=== PATIENT | female | born 1985 | race Caucasian/White ===

== ENCOUNTER 2020-10-07 20:56 | Emergency (ER) | payer OTHER, SELFPAY ==
[2020-10-07 20:57] VITALS: BP 179/89; PULSE 124; RESP 16; TEMP 36.2; O2SAT 100
--- NOTE | 2020-10-07 21:26 | ED.LOWEXIN ---
HPI - Extremity Injury (Lower) General Chief Complaint: Back Pain/Injury Stated Complaint: back pain Time Seen by Provider: 10/07/20 21:05 History of Present Illness HPI Narrative: 35 yo female w/ h/o factor V leiden mutation presents to the ED for back and leg pain. She had pain in the right lower back fr the past couple of weeks. She was seen at urgent care and started on flexeril. She has spent most of the time since then immobile. The pain on the right side subsided, but she developed pain on the left side radiating into the leg. She also has intermittent leg numbness and feels like it is swollen. She has had previous DVTs, so she was concerned. She is on xeralto and has not missed any doses. Related Data Allergies Allergy/AdvReac Type Severity Reaction Status Date / Time No Known Allergies Allergy Verified 03/26/13 15:31 Review of Systems Review of Systems: All systems reviewed & are unremarkable except as noted in HPI and below Constitutional: Constitutional: Denies fever(s) Cardiovascular: Cardiovascular: Denies chest pain Respiratory: Respiratory: Denies dyspnea Gastrointestinal: Gastrointestinal: Denies nausea Musculoskeletal: Musculoskeletal: Reports back pain Neurologic: Denies dizziness, Reports numbness and Denies weakness PMFSH Past Medical History Medical History Anxiety Bleeding diathesis Current use of skilled nursing anticoagulation Factor 5 Leiden mutation, heterozygous History of blood clots Surgical History Surgical History H/O angioplasty Family History Family History Grandparent Family history of malignant neoplasm of ovary, Onset Age: 65 Social History Social History Smoking status: Former smoker Smoking end date: 11/05/18 Alcohol intake: current Exam Const: General: healthy appearing, no acute distress and alert Orientation/consciousness: patient oriented x3 HENMT: Head: normal to inspection Neck: Neck: normal visual inspection Resp: Effort & Inspection: normal respiratory effort Auscultation: clear to auscultation bilaterally, no rales, no rhonchi and no wheezes Cardio: Jugular venous distension: no JVD Rate: regular rate Rhythm: regular rhythm Heart sounds: no murmurs GI: Inspection: non-distended GI Palp: Yes Soft to palpation and No Tenderness to palpation present (GI) Skin: General skin exam: normal color Neuro: General: patient oriented x3 and moves all extremities Speech: normal speech Gait exam (Neuro): Normal gait present Extrem: General: normal to inspection and no edema Psych: Appearance: well kempt Affect: normal affect Course Vital Signs Vital signs: Vital Signs Temperature 36.2 C L 10/07/20 20:57 Pulse Rate 124 H 10/07/20 20:57 Respiratory Rate 16 10/07/20 20:57 Blood Pressure 179/89 H 10/07/20 20:57 Pulse Oximetry 100 10/07/20 20:57 Temperature 36.2 C L 10/07/20 20:57 Pulse Rate 124 H 10/07/20 20:57 Respiratory Rate 16 10/07/20 20:57 Blood Pressure 179/89 H 10/07/20 20:57 Pulse Oximetry 100 10/07/20 20:57 MDM - Extremity Injury (Lower) MDM Narrative Medical decision making narrative: Bedside US negative for DVT. She is currently anticoagulated. History and exam consistent with sciatica. Medical Records Attestation: I reviewed the patient's medical records. Lab Data Attestation: I reviewed the patient's lab results. Discharge Plan Discharge Clinical Impression: Sciatica Qualifiers: Laterality: left Qualified Code(s): M54.32 - Sciatica, left side Patient Disposition: Home, Self-Care Condition: Stable Instructions: Sciatica (ED), Lower Back Exercises (ED) Prescriptions: New diazepam [Valium] 2 mg tablet 2 mg PO HS PRN (Reason: muscle spasm) Qty: 5 RF:
[2020-10-07] MEDS: diazePAM INJ (*CRX) 10 MG/2 ML SYRINGE 5 MG IM (21:53)
== END 2020-10-07 22:05 | disposition home or self-care (01) ==
PROVIDERS: Emergency Provider Emergency Medicine; PCP Internal Medicine
DX: M54.42 Lumbago with sciatica, left side (principal); D68.51 Activated protein C resistance; Z79.01 Long term (current) use of anticoagulants; Z98.62 Peripheral vascular angioplasty status; Z87.891 Personal history of nicotine dependence
CPT/HCPCS: 96372; 96374; 99284; J1100; J3360

== ENCOUNTER 2020-11-11 11:07 | Outpatient (CLI) | payer OTHER, SELFPAY ==
--- NOTE | ~2020-11-11 | XR_ITS ---
XR lumbar spine 2-3V DATE: 11/11/2020 11:50 INDICATION: Low back pain, radiculopathy. TECHNIQUE: AP, lateral, coned lateral lumbosacral views COMPARISON: None FINDINGS: There is a transitional lumbosacral vertebra. There are 4 functional lumbar vertebra. No fracture or bone destruction or spondylolisthesis. There is minimal loss of height otherwise 2 lum bar interspaces. The lumbar pedicles are intact. The sacroiliac joints appear normal. Right common iliac artery vascular stent. IMPRESSION: Transitional lumbosacral vertebra Minimal loss of height and last 2 lumbar interspaces Right common iliac artery vascular stent Reviewed, dictated and finalized at location B. RTISING PROJECT MANAGER
[2020-11-11 11:49] LABS: Basophils Percent Auto 0.3 % (0.2-1.2); Eosinophils Absolute Auto 0.1 K/mm3 (0-0.3); Eosinophils Percent Auto 1.1 % (0-4.4); Hematocrit 41.6 % (37.0-47.0); Hemoglobin 13.8 g/dL (12.0-15.0); Immature Granulocyte Absolute 0.06 K/mm3 (0.00-0.031); Immature Granulocyte Percent A 0.5 % (0-0.5); Lymphocytes Absolute Auto 2.47 K/mm3 (0.9-3.2); Lymphocytes Percent Auto 20.9 % (18.3-44.2); Mean Corpuscular HGB Conc 33.2 g/dl (32-36); Mean Corpuscular Hemoglobin 33.1 pg (26-34); Mean Corpuscular Volume 99.8 fl (80-100); Mean Platelet Volume 9.1 fl (7.4-10.4); Monocytes Percent Auto 8.4 % (2.6-8.5); Neutrophils Absolute Auto 8.2 K/mm3 (1.3-6.7); Neutrophils Percent Auto 68.8 % (45.5-73.1); Platelet Count Result 326 k/mm3 (150-375); Red Blood Count 4.17 M/mm3 (4.2-5.4); Red Cell Distribution Width 13.8 % (11.5-14.5); White Blood Count 11.8 K/mm3 (4.5-10.0)
[2020-11-11 12:14] LABS: Alanine Aminotransferase 15 U/L (4-35); Albumin Level 4.3 g/dL (3.5-5.1); Alkaline Phosphatase 46 U/L (38-126); Anion Gap 5 mmol/L (8-16); Aspartate Amino Transferase 22 U/L (14-36); Bilirubin,Total 0.3 mg/dL (0.2-1.3); Blood Urea Nitrogen 11 mg/dL (7-17); Calcium 9.6 mg/dL (8.4-10.2); Carbon Dioxide 28 mmol/L (22-30); Chloride 105 mmol/L (98-107); Estimated Glomerular Filt Rate > 60; Glucose 115 mg/dL (65-105); Potassium 4.5 mmol/L (3.4-5.0); Sodium 138 mmol/L (137-145)
[2020-11-11 15:07] LABS: Erythrocyte Sedimentation Rate 15 mm/hr (0-20)
== END 2020-11-11 11:08 | disposition home or self-care (01) ==
PROVIDERS: PCP Internal Medicine; Visit Provider Nurse Practitioner
DX: M54.16 Radiculopathy, lumbar region (principal); R00.0 Tachycardia, unspecified
CPT/HCPCS: 36415; 72100; 80053; 84443; 85025; 85652

== ENCOUNTER 2020-11-18 14:46 | Outpatient (CLI) | payer OTHER, SELFPAY ==
--- NOTE | ~2020-11-18 | MR_ITS ---
EXAMINATION: MR lumbar spine wo con DATE: 11/18/2020 15:22 INDICATION: Low back pain. Left leg pain. TECHNIQUE: Magnetic resonance imaging (MRI) of the lumbar spine was performed without intravenous con trast. Sequences included sagittal T2-weighted FSE, sagittal T2-weighted FS FSE, sagittal T1-weighted FSE, and axial T2-weighted FSE. COMPARISON: Lumbar spine radiographs 11/11/2020, chest 2 views 02/27/2005 FINDINGS: There are 12 pairs of ribs. L5 is a transitional segment. There is 5 mm retrolisthesis of L 3 on L4 and L4 on L5. Vertebral body heights are normal. There is mildly decreased disc height at L3- L4 and L4-L5. The distal spinal cord signal intensity is normal. The conus medullaris is at T12-L1. T he following disc levels are specifically discussed: L1-L2: The disc does not extend beyond the endplate margin. There is mild bilateral facet joint osteo arthritis. There is no neural foraminal stenosis. There is no central canal stenosis. L2-L3: The disc does not extend beyond the endplate margin. There is severe right and moderate left f acet joint osteoarthritis. There is no neural foraminal stenosis. There is no central canal stenosis. L3-L4: There is a left central extrusion with mass effect on left L4 nerve root in left lateral reces s. There is severe bilateral facet joint osteoarthritis. There is mild bilateral neural foraminal german nosis. There is mild central canal stenosis. L4-L5: The disc is bulging. There is moderate right and severe left facet joint osteoarthritis. There is mild right and moderate left neural foraminal stenosis. There is mild central canal stenosis. L5-S1: The disc does not extend beyond the endplate margin. There is mild right and moderate left fac et joint osteoarthritis. There is no neural foraminal stenosis. There is no central canal stenosis. IMPRESSION: 1. Moderate lumbar spondylosis. Of note, an extrusion at L3-L4 exerts mass effect on left L4 nerve ro ot. Reviewed, dictated and finalized at location A. RONMENTAL SAMPLER IMPRESSION: 1. Moderate lumbar spondylosis. Of note, an extrusion at L3-L4 exerts mass effe ct on left L4 nerve root.
== END 2020-11-18 14:47 ==
PROVIDERS: PCP Internal Medicine; Visit Provider Nurse Practitioner
DX: M47.26 Other spondylosis with radiculopathy, lumbar region (principal)
CPT/HCPCS: 72148

== ENCOUNTER 2020-12-07 08:00 | Outpatient (RCR) | payer OTHER, SELFPAY ==
--- NOTE | 2020-10-13 13:36 | PTOPEVAL ---
PHYSICAL THERAPY EVALUATION AND PLAN OF CARE 10-13-2020 Thank you for referring Morena Sweeney to [facility].? She is scheduled to be seen for therapy? 2 x/week for 4 weeks. Please review, sign, date and return this plan of care ANNY. I agree with and certify that the following plan of care is medically necessary. Referring Physician Date Attending Provider: Ashley Guerrero NP PT Outpatient Evaluation Document 10/13/20 12:35 EMILIO (Rec: 10/13/20 13:36 EMILIO [id number]) Outpatient Past Medical History Past Medical History Source of Past Medical History Patient Neurological History Hx Neurological Disorders No Significant History Cardiovascular History Hx Cardiac Disorders No Significant History Respiratory History Hx Asthma Yes Gastrointestinal History Hx Gastrointestinal Disorders No Significant History Genitourinary History Hx Genitourinary Disorders No Significant History Musculoskeletal History Hx Musculoskeletal Disorders No Significant History Hematological History Hx Other Hematological Disorders Yes: Factor 5- blood clotting disorder- on blood thinner Endocrine History Hx Endocrine Disorders No Significant History Integumentary History Hx Skin Disorders No Significant History Reproductive History Hx Section Yes Psychosocial History Hx Depression Yes: on meds Other History Hx Other Surgeries Yes: stent in R groin due to blood clot Evaluation Information Problem Diagnosis lumbar radiculopathy Onset Sep 23, 2020 Subjective Information about week before Thanks Query Text:As Reported By Patient/ giving, started feeling like Family pulled muscles in R low back; then after Thanksgiving- had full spasms over back R more than L and went to Urgent care; was given some meds, back was better, but pain moved from R to L side of low back, then started shooting down L leg and numbness; Diagnostic Tests X-Rays For This Problem No MRI For This Problem No Other Tests For This Problem No Previous Treatments Previous Treatments For This Problem NO PT for back Prior Level of Function Activity Level (Last 3 Months) 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
--- NOTE | 2020-11-09 08:47 | PTOPEVAL ---
PHYSICAL THERAPY RE-EVALUATION AND UPDATED PLAN OF CARE 11-09-2020 Refer to the clinical summary below for her status with the reevaluation, compared to the initial evaluation. PT treatment is to continue 2x/week for 4 weeks. Thank you for referring Morena Sweeney to [facility] [place].? Please review, sign, date and return this plan of care [facility]. I agree with and certify that the following plan of care is medically necessary. Referring Physician Date Attending Provider: Ashley Guerrero NP Document 11/09/20 08:05 EMILIO (Rec: 11/09/20 08:47 EMILIO [id number]) Assessment Status Re-evaluation Subjective Information Morena reports: therapy is Query Text:As Reported By Patient/ helping, getting better- back Family pain is less, have pain at night, but day is better; more soreness in back- not as sharp and shooting pain; numbness is gone in leg; shooting pain to L ankle- pulling and hurts, stops when sit; Self assessment with the Oswstry Low back questionnaire is 42 % limitation in functional ability; Pain Assessment Timing of Pain Assessment Timing of Pain Assessment Assessment Pain Scale Pain Scale Used Numeric (1 - 10) Self Report Pain Assessment Bilateral Back Reported Pain Level 1 Pain Radiation Left Leg Radicular Pain Location intermittent L LE to lateral ankle Pain Frequency Chronic,Continuous Lowest Pain Intensity 1 Greatest Pain Intensity 7 Pain Aggravating Factors Exercise/Activity,Walking, Weight Bearing/Standing Other Pain Aggravating Factors reported tolerance walking/ standing 1 & 1/2 hr Pain Score Pain Score 1: Self Report Interventions Used Interventions Used By Clinicians Exercise Pain Relief Interventions Used By Exercise,Heat,Ice,Inactivity/ Patient Rest,Medication,Sitting Other Alleviating Interventions taking gabapentin and tylenol Cervical and Lumbar ROM Lumbar ROM Lumbar Comments standing trunk extension to neutral- increase stiff in low back and shooting pain into L LE to lateral thigh and lateral ankle; prone knee flexion/ant hip length: R 115'- pain and pull in back and L 125'- no c/o;
--- NOTE | 2020-12-07 08:47 | PTOPEVAL ---
PHYSICAL THERAPY DISCHARGE 12-07-20 Refer to the clinical summary below for her status at discharge. The goals were achieved, except standing trunk extension causes L lateral hip pain and intermittent L ankle pain. Thank you for referring Morena Sweeney to [facility].? Please review, sign, date and return this Discharge ANNY. I agree with and certify that the following plan of care is medically necessary. Referring Physician Date Attending Provider: Ashley Guerrero, X RAY DEVELOPING MACHINE OPERATOR Document 12/07/20 08:00 EMILIO (Rec: 12/07/20 08:46 EMILIO [id number]) Assessment Status Discharge Subjective Information Morena reports: feeling 95% back Query Text:As Reported By Patient/ to normal, walking is better, Family pain is less, sleeping better , standing is less pain- was feeling like back compressed, no longer have; has an exercise ball at home, taking tylenol about 2x/day; agrees to discharge from PT service, to continue with her exercises . Pain Assessment Timing of Pain Assessment Timing of Pain Assessment Assessment Pain Scale Pain Scale Used Numeric (1 - 10) Self Report Pain Assessment Bilateral Back Reported Pain Level 0 Radicular Pain Location no shooting pain Pain Frequency Chronic,Intermittent Other Pain Description pulled muscle pain in ankle at end of day, L side Lowest Pain Intensity 0 Greatest Pain Intensity 3 Other Pain Aggravating Factors end of work day Additional Pain Comments can sleep through night; walking tolerance 5-6 hours Pain Score Pain Score 0: Self Report Additional Pain Score Comments had one injection Nov 30; to follow up with pain management ; Oswestry self assessment functional score 8% limitation Cervical and Lumbar ROM Lumbar ROM Lumbar Comments standing trunk flexion without pain, extension reports little pinch in L lateral hip ; both ranges WNL; prone knee flexion B 125' without pain; Lower Extremity Muscle Strength Testing General Lower Extremity Strength Gross Lower Extremity Strength single leg standing: R and L 30 seconds with good stability ; L ankle: sitting DF to 8'/ R
== END 2020-12-09 12:39 | disposition home or self-care (01) ==
LOC: ANHPT 08:00
PROVIDERS: PCP Internal Medicine; Visit Provider Nurse Practitioner
DX: M54.16 Radiculopathy, lumbar region (principal)
CPT/HCPCS: 97012; 97014; 97110; 97140; 97161; G0283

== ENCOUNTER 2020-12-08 14:41 | Outpatient (CLI) | payer OTHER, SELFPAY ==
--- NOTE | 2020-12-08 14:54 | ECHO_ITS ---
Patient Info Name: Morena Sweeney Age: 35 years : 1985 Gender: Female Ht: 65 in Wt: 196 lbs BSA: 2.05 m2 HR: 105 bpm BP: 154 / 92 mmHg Heart Rhythm: Tachycardia Technical Quality: Good Exam Date: 12/08/2020 3:10 PM Exam Location: [facility] Pulmonary Patient Status: Outpatient Admit Date: 12/08/2020 Staff Ordering Physician: Socorro Jacobson NP Ict Support And Test Engineers: Richy Briggs RDCS Attending Provider: Socorro Jacobson NP Referring Physician: Kavon ROBLES; Exam Type: CA echo doppler color flow Study Info Indications R00.0 - Tachycardia, unspecified Complete two-dimensional, color flow and Doppler transthoracic echocardiogram is performed. Strain analysis performed. History/Risk Factors Tachycardia, HTN. Summary 1. Complete two-dimensional, color flow and Doppler transthoracic echocardiogram is performed. 2. Left ventricular chamber dimension is normal. 3. Left ventricular systolic function is normal, estimated at 60-65%. 4. The left ventricular diastolic function is grade I diastolic dysfunction. 5. E/e' 4 is not elevated. 6. Global longitudinal strain is normal at -18.1%. Left Ventricle E/e' 4 is not elevated. Global longitudinal strain is normal at -18.1%. Left ventricular chamber dimension is normal. Left ventricular systolic function is normal, estimated at 60-65%. The left ventricular diastolic function is grade I diastolic dysfunction. Right Ventricle Right ventricular chamber dimension is normal. Right ventricular systolic function is normal. Left Atria Left atrial chamber dimension is normal. Right Atria Right atrial chamber dimension is normal. Aortic Valve The aortic valve is trileaflet. There is no aortic valve stenosis. There is no aortic valve regurgitation. Pulmonic Valve There is no pulmonic regurgitation. Mitral Valve There is no mitral valve stenosis. There is no mitral valve regurgitation. Tricuspid Valve There is no tricuspid valve regurgitation. Pericardium/Pleural There is no pericardial effusion. Inferior Vena Cava Normal inferior vena cava with >50% collapse upon inspiration consistent with normal right atrial pressure, 5 mmHg. Aorta The aortic root size at the sinus of Valsalva is normal. Left Ventricular Outflow Tract Name Value Normal LVOT 2D LVOT Diameter 1.9 cm LVOT Doppler LVOT Peak Gradient 6 mmHg LVOT Mean Gradient 3 mmHg LVOT VTI 20 cm LVOT VTI/AV VTI Ratio 0.9 LVOT Stroke Volume 59 ml LVOT CO 6.4 l/min LVOT CI 3.1 l/min/m2 Mitral Valve Name Value Normal MV Doppler MV Decel [place] 423 cm/s2 MV PHT
== END 2020-12-08 14:42 | disposition home or self-care (01) ==
LOC: ANHCARD 14:41
PROVIDERS: PCP Internal Medicine; Visit Provider Nurse Practitioner
DX: R00.0 Tachycardia, unspecified (principal)
CPT/HCPCS: 93306

== ENCOUNTER 2020-12-17 10:32 | Outpatient (CLI) | payer OTHER, SELFPAY ==
[2020-12-17 10:46] LABS: Basophils Percent Auto 0.4 % (0.2-1.2); Eosinophils Absolute Auto 0.2 K/mm3 (0-0.3); Eosinophils Percent Auto 2.1 % (0-4.4); Hematocrit 41.8 % (37.0-47.0); Hemoglobin 13.8 g/dL (12.0-15.0); Immature Granulocyte Absolute 0.03 K/mm3 (0.00-0.031); Immature Granulocyte Percent A 0.3 % (0-0.5); Lymphocytes Absolute Auto 2.45 K/mm3 (0.9-3.2); Lymphocytes Percent Auto 23.8 % (18.3-44.2); Mean Corpuscular Hemoglobin 32.8 pg (26-34); Mean Corpuscular Volume 99.3 fl (80-100); Mean Platelet Volume 9.5 fl (7.4-10.4); Monocytes Absolute Auto 0.8 K/mm3 (0.1-0.6); Monocytes Percent Auto 7.6 % (2.6-8.5); Neutrophils Absolute Auto 6.8 K/mm3 (1.3-6.7); Neutrophils Percent Auto 65.8 % (45.5-73.1); Platelet Count Result 354 k/mm3 (150-375); Red Blood Count 4.21 M/mm3 (4.2-5.4); Red Cell Distribution Width 13.3 % (11.5-14.5); White Blood Count 10.3 K/mm3 (4.5-10.0)
[2020-12-17 10:52] LABS: Blood Urea Nitrogen 10 mg/dL (8-26); Carbon Dioxide 24 mmol/L (22-30); Chloride 108 mmol/L (98-109); Estimated Glomerular Filt Rate > 60; Glucose 125 mg/dL (70-105); Potassium 3.7 mmol/L (3.5-4.9); Sodium 142 mmol/L (138-146)
[2020-12-17 12:42] LABS: Alanine Aminotransferase 13 U/L (4-35); Albumin Level 4.3 g/dL (3.5-5.1); Alkaline Phosphatase 55 U/L (38-126); Anion Gap 7 mmol/L (8-16); Aspartate Amino Transferase 22 U/L (14-36); Bilirubin,Total 0.3 mg/dL (0.2-1.3); Blood Urea Nitrogen 11 mg/dL (7-17); Calcium 9.5 mg/dL (8.4-10.2); Carbon Dioxide 24 mmol/L (22-30); Chloride 110 mmol/L (98-107); Estimated Glomerular Filt Rate > 60; Glucose 130 mg/dL (65-105); Sodium 141 mmol/L (137-145)
== END 2020-12-17 10:33 | disposition home or self-care (01) ==
LOC: ANHLAB 10:34
PROVIDERS: PCP Internal Medicine; Visit Provider Internal Medicine Hematology & Oncology
DX: D68.69 Other thrombophilia (principal)
CPT/HCPCS: 36415; 80048; 80053; 85025

== ENCOUNTER 2021-12-06 16:34 | Observation (INO) | payer OTHER, SELFPAY ==
--- NOTE | ~2021-12-06 | MR_ITS ---
EXAMINATION: MR brain/brain stem wo con EXAM DATE: 12/07/2021 15:19 INDICATION: Altered mental status. Occipital headaches. Numbness. Paresthesia. Factor V deficiency. TECHNIQUE: Magnetic resonance imaging (MRI) of the brain/brain stem obtained without contrast. Nini al T1, axial diffusion, gradient echo (T2*), T1, T2, FLAIR sequences obtained. Correlation is made t o Head CT 12/06/2021. FINDINGS: The possible old cerebellar infarction on head CT was likely artifact, no evidence of prior infarction on this exam. There are no areas of restricted diffusion to suggest acute infarction. Th ere is no acute hemorrhage seen on the T2*, a hemosiderin sensitive sequence. No intraparenchymal br ain mass. The ventricles are normal in size. There are no extra-axial collections. Flow voids are s een in the cerebral arteries on the T2-weighted sequences consistent with their expected patency. Th e orbits are unremarkable. Soft tissue is unremarkable. IMPRESSION: 1. Unremarkable brain MRI examination. Reviewed, dictated and finalized at location G. 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
--- NOTE | ~2021-12-06 | CT_ITS ---
EXAMINATION: CT brain wo con EXAM DATE: 12/06/2021 20:23 INDICATION: Factor V deficiency, numbness to body and face. Paresthesia. TECHNIQUE: Spiral CT of the head was performed without contrast. Axial, coronal and sagittal images were reviewed. The dose-length product (DLP) for this examination was 605.33 mGy-cm. The exposure w as tailored according to patient size, and iterative reconstruction (ASIR) was used as additional dos e reduction technique. There is no prior study for comparison. FINDINGS: Possible small old right cerebellar infarction. There is no acute intraparenchymal hemorrha ge. No evidence of intraparenchymal brain mass lesion. No evidence of acute infarction. There is n o mass effect or midline shift. The ventricles are normal in size. There are no extra-axial collect ions. There are no acute calvarial fractures. The orbits are unremarkable. Soft tissue is unremarka ble. The visualized sinuses and mastoid air cells are well aerated. IMPRESSION: 1. No acute intracranial findings. 2. Possible small old right cerebellar infarction. Reviewed, dictated and finalized at location G. 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
--- NOTE | ~2021-12-06 | XR_ITS ---
EXAMINATION: XR chest 2V EXAM DATE: 12/06/2021 20:17 INDICATION: Weakness. TECHNIQUE: Frontal and lateral projections of the chest obtained and reviewed. Comparison is made to prior examination from 2004. FINDINGS: The lungs are clear. There are no pleural effusions. The cardiomediastinal silhouette is within normal limits. There is no pneumothorax suspected. The bones and soft tissues are unremarkab le. IMPRESSION: No acute cardiopulmonary findings. Reviewed, dictated and finalized at location G. OR APPRENTICE
[2021-12-06 17:03] VITALS: BP 129/77; PULSE 99; RESP 18; TEMP 36.7; O2SAT 100
--- NOTE | 2021-12-06 19:44 | ECG_ITS ---
Measurements Intervals [place] Rate: 65 P: 70 LA: 180 QRS: 15 QRSD: 96 T: 61 QT: 381 QTc: 399 Interpretive Statements SINUS RHYTHM WITH SINUS ARRHYTHMIA INCOMPLETE RIGHT BUNDLE BRANCH BLOCK BORDERLINE ECG Electronically Signed On 12-07-2021 6:28:50 FUN HOUSE OPERATOR by Jairo Beth D.O.
[2021-12-06 20:13] LABS: Alveolar/Arterial O2 Gradient 14.4 mmHg; Base Excess ABG -1.2 mEq/l (+/-2.0); Fractional Inspired Oxygen 21 %; HCO3 ABG 22.5 mEq/l (22.0-26.0); Oxygen Content ABG 18.2 %vol (16.0-22.0); Oxygen Saturation ABG 97.4 % (95.0-100.0); PCO2 ABG 34.8 mmHg (35.0-45.0); PO2 ABG 93.7 mmHg (80.0-100.0); PO2 FiO2 Ratio Arterial Blood 4.46 %; pH ABG 7.429 (7.350-7.450)
[2021-12-06 20:14] LABS: Device ROOM AIR; Modified Allen's Test Pass; Site Drawn LEFT RADIAL
[2021-12-06 20:23] LABS: Basophils Percent Auto 0.2 % (0.2-1.2); Eosinophils Absolute Auto 0.1 K/mm3 (0-0.3); Eosinophils Percent Auto 1.1 % (0-4.4); Hematocrit 40.8 % (37.0-47.0); Hemoglobin 13.5 g/dL (12.0-15.0); Immature Granulocyte Absolute 0.03 K/mm3 (0.00-0.031); Immature Granulocyte Percent A 0.3 % (0-0.5); Lymphocytes Percent Auto 29.5 % (18.3-44.2); Mean Corpuscular HGB Conc 33.1 g/dl (32-36); Mean Corpuscular Hemoglobin 33.3 pg (26-34); Mean Corpuscular Volume 100.5 fl (80-100); Mean Platelet Volume 9.9 fl (7.4-10.4); Monocytes Absolute Auto 0.7 K/mm3 (0.1-0.6); Monocytes Percent Auto 6.7 % (2.6-8.5); Neutrophils Absolute Auto 6.5 K/mm3 (1.3-6.7); Neutrophils Percent Auto 62.2 % (45.5-73.1); Platelet Count Result 277 k/mm3 (150-375); Red Blood Count 4.06 M/mm3 (4.2-5.4); Red Cell Distribution Width 13.6 % (11.5-14.5); White Blood Count 10.5 K/mm3 (4.5-10.0)
[2021-12-06] MEDS: SODIUM CHLORIDE 0.9% IV 1,000 ML 999 ML IV CONT (20:30)
[2021-12-06 20:32] LABS: Ammonia < 9 umol/L (9-30); Ethanol < 10 mg/dL (<10)
[2021-12-06 20:33] LABS: Alanine Aminotransferase 16 U/L (4-35); Albumin Level 4.5 g/dL (3.5-5.1); Alkaline Phosphatase 53 U/L (38-126); Anion Gap 5 mmol/L (8-16); Aspartate Amino Transferase 21 U/L (14-36); Bilirubin,Total 0.6 mg/dL (0.2-1.3); Blood Urea Nitrogen 11 mg/dL (7-17); Calcium 9.6 mg/dL (8.4-10.2); Carbon Dioxide 24 mmol/L (22-30); Chloride 107 mmol/L (98-107); Estimated CRCL calculation 100 ml/min; Estimated Glomerular Filt Rate > 60; Glucose 87 mg/dL (65-110); Potassium 3.7 mmol/L (3.4-5.0); Prothrombin Time 13.2 Seconds (11.1-14.7); Sodium 136 mmol/L (137-145)
[2021-12-06 20:34] LABS: Partial Thromboplastin Time 27.5 SECONDS (22.3-36.8)
[2021-12-06 20:39] LABS: Add Urine Microscopic? YES; Appearance Urine Clear (Clear); Bilirubin Urine Negative (Negative); Blood Urine Negative (Negative); Color Urine Yellow (Yellow); Glucose Urine UA Negative (Negative); Ketones Urine 1+ mg/dL (Negative); Leukocyte Esterase Ur Negative LEU/UL (Negative); Mucus Urine Heavy /lpf; Nitrate Urine Negative (Negative); Protein Urine 1+ mg/dL (Negative); Squamous Epithelial Cell Urine Rare /hpf (Few); WBC Urine 0-3 /hpf
[2021-12-06 20:52] LABS: Amphetamine Screen Urine Negative (Negative); Barbiturate Screen Urine Negative (Negative); Benzodiazepines Screen Urine Negative (Negative); Cannabinoid Screen Urine Positive (Negative); Cocaine Screen Urine Negative (Negative); Methadone Screen Urine Negative (Negative); Opiate Screen Urine Negative (Negative); Phencyclidine Screen Urine Negative (Negative)
--- NOTE | 2021-12-06 21:02 | ED.GENADULT ---
HPI - General Adult General Chief complaint: Altered Mental Status <Tobin Ruiz MD - Last Filed: 12/06/21 21:06> Stated complaint: Cannot Concentrate <Tobin Ruiz MD - Last Filed: 12/06/21 21:06> Time Seen by Provider: 12/06/21 19:34 <Tobin Ruiz MD - Last Filed: 12/06/21 21:06> History of Present Illness HPI narrative: Patient is a 36-year-old female who presents ER with reports of confusion. Has had difficulty processing thought over the last 2 weeks. Associated with some sinus congestion and sore throat. She was tested for Covid but it did not improve. Patient also reports that she started having tingling of her face and arms. She can feel sensation but feels like she cannot feel sharp touch like she typically does. No focal weakness in arm or leg. No slurred speech. Boyfriend concern reports the patient is typically cognitively sharp and she has not been. Today she went to the wrong facility to have an outpatient blood draw performed. She then went to the proper facility and it was not performed because paperwork was not present. She does realize a second migrated half of this act was elevated but not caused by her. Denies drug use. <Tobin Ruiz MD - Last Filed: 12/06/21 21:06> Related Data Home medications: Home Medications Medication Instructions Recorded Confirmed rivaroxaban 20 mg tablet 20 mg PO DAILY 10/11/20 11/11/20 <Tobin Ruiz MD - Last Filed: 12/06/21 21:06> Allergies/adverse reactions: Allergies Allergy/AdvReac Type Severity Reaction Status Date / Time No Known Allergies Allergy Verified 11/11/20 10:02 <Tobin Ruiz MD - Last Filed: 12/06/21 21:06> Review of Systems Review of Systems: All systems reviewed & are unremarkable except as noted in HPI and below <Tobin Ruiz MD - Last Filed: 12/06/21 21:06> Constitutional: Constitutional: Denies chills, Denies fever(s) and Denies weakness <Tobin Ruiz MD - Last Filed: 12/06/21 21:06> ENT: Reports nasal congestion and Denies sore throat <Tobin Ruiz MD - Last Filed: 12/06/21 21:06> Cardiovascular: Cardiovascular: Denies chest pain, Denies rapid heart rate and Denies radiating jaw, neck or arm pain <Tobin Ruiz MD - Last Filed: 12/06/21 21:06> Respiratory: Respiratory: Denies cough and Denies dyspnea <Tobin Ruiz MD - Last Filed: 12/06/21 21:06> Gastrointestinal: Gastrointestinal: Denies abdominal pain, Denies nausea and Denies vomiting <Tobin Ruiz MD - Last Filed: 12/06/21 21:06> Neurologic: Denies headache(s), Denies focal weakness and Reports numbness <Tobin Ruiz MD - Last Filed: 12/06/21 21:06> PMFSH Past Medical History Medical History: Medical History Anxiety Bleeding diathesis Current use of laboratory specialist anticoagulation Factor 5 Leiden mutation, heterozygous History of blood clots <Tobin Ruiz MD - Last Filed: 12/06/21 21:06> Surgical History Surgical History: Surgical History H/O angioplasty <Tobin Ruiz MD - Last Filed: 12/06/21 21:06> Family History Family History: Family History Grandparent Family history of malignant neoplasm of ovary, Onset Age: 65 <Tobin Ruiz MD - Last Filed: 12/06/21 21:06> Social History Social History: Social History (Updated 10/11/20 @ 13:40 by Lindsay Hernandez CMA) Smoking packs per day: 0.5 Smoking cigarettes per day: 10.0 Smoking status: Current every day smoker Smoking end date: 11/05/18 Alcohol intake: current Alcohol use details: occasional <Tobin Ruiz MD - Last Filed: 12/06/21 21:06> Exam Narrative: GENERAL: Well-appearing, well-nourished, and in no acute distress. HEAD: Normocephalic, atraumatic. EYES: PERRL and EOM
--- NOTE | 2021-12-06 21:43 | PM.IMHP ---
H&P: HPI History of Present Illness Date/Time: 12/06/21 21:43 Chief Complaint: Altered mental status Narrative: This is a 36-year-old female with past medical history significant for factor Leiden deficiency on chronic anticoagulation, sciatica, voiding disc. Patient presents to the emergency room with complaints of foggy brain , weight loss, occipital headache for the last 2 weeks or so. Patient is boyfriend is in the room and is actively participating in history taking as well. Patient denies any vision changes, rhinorrhea, sore throat, earache, neck pain, shortness of breath cough sputum production, chills or rigors or fevers, no nausea no vomiting no abdominal pain, no pain or burning with urination, no rashes, no joint pain or swelling. Preliminary workup has been essentially nonrevealing. At home patient try NyQuil DayQuil and ibuprofen and decided to come to the emergency room after no resolution. Patient is being admitted for further management evaluation and treatment. Review of Systems Review of Systems: Brain fog, occipital headache, weight loss. Constitutional: Constitutional: Denies body ache(s), Denies chills, Denies excessive sweating, Denies fatigue, Denies fever(s), Denies lethargy, Denies malaise, Denies night sweats, Denies poor appetite, Denies weakness and Reports weight loss Eyes: Eyes: Denies change in vision ENT: Denies dysphagia, Denies ear discharge, Denies otalgia, Denies mouth lesions, Denies nasal congestion, Denies nasal discharge, Denies nasal obstruction and Denies odynophagia Cardiovascular: Cardiovascular: Denies pedal edema, Denies edema, Denies leg ulcers, Denies leg edema, Denies lightheadedness, Denies radiating jaw, neck or arm pain, Denies palpitations and Denies dyspnea on exertion Respiratory: Respiratory: Denies chest congestion, Denies cough, Denies excessive phlegm production and Denies dyspnea Gastrointestinal: Gastrointestinal: Denies abdominal pain, Denies change in stool character, Denies dyspepsia, Denies heartburn, Denies diarrhea, Denies nausea, Denies odynophagia and Denies vomiting Genitourinary: Genitourinary: Denies dysuria and Denies flank pain Musculoskeletal: Musculoskeletal: Denies back pain, Denies myalgias, Denies arthralgias, Denies joint swelling, Denies muscle weakness and Denies neck pain Integumentary/Breasts: Skin/Breast: Denies swelling and Denies rash Neurologic: Reports headache(s) (Occipital), Denies focal weakness and Denies Sensory deficit (Neuro) Psychiatric: Psychiatric: Reports no additional psychiatric complaints and Reports as per HPI Endocrine: Endocrine: Denies cold intolerance, Denies excessive sweating, Denies fatigue, Denies flushing, Denies heat intolerance, Denies polyphagia, Denies polydipsia, Denies polyuria and Denies palpitations Hematologic/Lymphatic: Hematologic/Lymphatic: Reports no additional hematologic/lymphatic complaints and Reports as per HPI Allergic/Immunologic: Allergic/Immunologic: Reports no additional allergic/immunologic complaints and Reports as per HPI PMFSH Past Medical History Medical History (Updated 12/07/21 @ 03:39 by Yessi Branch MD) Anxiety Bleeding diathesis Current use of terminal manager anticoagulation Factor 5 Leiden mutation, heterozygous History of blood clots Surgical History Surgical History H/O angioplasty Family History Family History Grandparent Family history of malignant neoplasm of ovary, Onset Age: 65 Social History Social History (Updated 10/11/20 @ 13:40 by Lindsay Hernandez [facility]) Smoking packs per day: 1 Smoking cigarettes per day: 20.0 Years smoked: 17 Smoking pack-years: 17.00 Smoking status: Current every day smoker Tobacco type: cigarettes Second hand tobacco smoke exposure: Yes Smoking end date: 11/05/18 Alcohol intake: current Drinks per week: 2 Alcoh
[2021-12-06 23:14] VITALS: BP 113/78; PULSE 61; RESP 15; O2SAT 98
[2021-12-06 23:14] LABS: SARS-CoV-2 RNA PCR Negative
[2021-12-07] VITALS (11 sets, daily range): BP systolic 107–122; BP diastolic 68–79; PULSE 55–89; RESP 15–20; TEMP 36.1–37.1; O2SAT 98–100; BMI 23.4
--- NOTE | 2021-12-07 00:47 | ADMGEN ---
This patient, Morena Sweeney, was admitted to 2 Medical Room 240-01. Patient/family oriented to hospital policies and general routines including ID bracelet, bed and alarms, visiting hours, pain management, procedures, bathroom and other care routines, personal items, smoking policy, room service/diet, and visiting hours. Information on how to activate the Rapid Response Team has been discussed. Patient/Family are encouraged to report perceived risks to care and to ask questions if they do not understand what they are told or what they should do.
[2021-12-07 05:52] LABS: Creatine Kinase 23 U/L (30-135)
[2021-12-07] MEDS: DULoxetine HCL 60 MG CAPSULE.DR PO (08:55)
[2021-12-07] MEDS: GABAPENTIN 100 MG CAPSULE PO ×3 (08:55→16:58)
[2021-12-07] MEDS: CLOPIDOGREL BISULFATE 75 MG TABLET PO (08:55)
--- NOTE | 2021-12-07 10:52 | WPDNEURCNPN ---
Assessment and Plan Additional Plan change in the mental status with MRI pending and also history of factor 5 laden deficiency but patient is currently on anticoagulation therapy in addition has ongoing history of lumbar radiculopathy with documented [place] abnormal MRI of the brain at this stage and neurological examination is nonfocal and stable will wait for the MRI of the brain report for the further discussion otherwise she is already receiving the appropriate medications Consult date: 12/07/21 HPI: Morena Sweeney is a 36 year old femaleAdmitted to the hospital for the complaints of change in the mental status that is for the brain with occipital headaches and weight loss of 2 weeks duration patient gave no history of visual difficulties sore throat ear ache neck pain difficulties in breathing chills or fever she was initially evaluated in the emergency room and then admitted for further evaluation , she has ongoing history of anxiety, current use of long-term anticoagulation because of bleeding diathesis, history of years smoke 17 with smoking pack years 17 and currently everyday smoker currently alcohol intake at least 2 drinks per week, home medication included Plavix 75 mg daily rivaroxaban 20 mg daily cyclobenzaprine 10 mg twice a day and duloxetine 60 mg daily gabapentin 100 mg 3 times a day, pertinent investigations up until now include the CT scan of the head which raise the possibility of a small old right cerebellar infarct with no evidence of bleed, negative chest x-ray, echocardiogram normal, in the past she has had the lumbar spine MRI which has documented no central canal stenosis but with mild bilateral neural foraminal stenosis and mild central canal stenosis at L4-5 findings suggestive of moderate lumbar spondylosis and left central extrusion with mass effect in the left L4 nerve root in the left lateral recess Review of Systems Review of Systems: All systems reviewed & are unremarkable except as noted in HPI and below PMFSH Past Medical History Medical History Anxiety Bleeding diathesis Current use of supervisor intermediates anticoagulation Factor 5 Leiden mutation, heterozygous History of blood clots Surgical History Surgical History H/O angioplasty Family History Family History Grandparent Family history of malignant neoplasm of ovary, Onset Age: 65 Social History Social History Smoking packs per day: 1 Smoking cigarettes per day: 20.0 Years smoked: 17 Smoking pack-years: 17.00 Smoking status: Current every day smoker Tobacco type: cigarettes Second hand tobacco smoke exposure: Yes Smoking end date: 11/05/18 Alcohol intake: current Drinks per week: 2 Alcohol use details: occasional Substance use: never Substance use type: does not use Spiritual care concerns: No Meds Home Medications and Allergies Home Medications Medication Instructions Recorded Confirmed Type clopidogrel 75 mg tablet 75 mg PO DAILY #90 tablet 05/12/20 12/07/21 Rx rivaroxaban 20 mg tablet 20 mg PO DAILY 10/11/20 12/07/21 History cyclobenzaprine 10 mg tablet 10 mg PO BID PRN #30 tablet 11/11/20 12/07/21 Rx duloxetine 60 mg capsule,delayed 60 mg PO DAILY #90 cap 11/11/20 12/07/21 Rx release gabapentin 100 mg capsule 100 mg PO TID #90 cap 11/22/20 12/07/21 Rx Allergies Allergy/AdvReac Type Severity Reaction Status Date / Time No Known Allergies Allergy Verified 12/07/21 00:22 Vital Signs Vital Signs - 24 hr 12/06/21 17:03 12/06/21 23:14 12/07/21 00:18 Temperature 36.7 C Pulse Rate 99 61 61 Respiratory Rate 18 15 15 Blood Pressure 129/77 113/78 113/78 Pulse Oximetry 100 98 98 12/07/21 00:23 12/07/21 00:37 12/07/21 04:06 Temperature 36.1 C L 36.4 C Pulse Rate 61 55 L 62 Respiratory Rate 15 20 18 Bl
[2021-12-07 11:36] LABS: Influenza Control Positive
[2021-12-07] MEDS: ACETAMINOPHEN 325 MG TABLET 650 MG PO (13:37)
--- NOTE | 2021-12-07 13:59 | PM.IMPN ---
Progress Note: A&P Assessment and Plan (1) Altered mental status, unspecified: Code(s): R41.82 - Altered mental status, unspecified Status: Acute Assessment and Plan: Place in observation CT of the head showed possible area of stroke. MRI of brain and brainstem cannot be done until we get more information on her right femoral stent. Unable to obtain LP due to patient being on anticoagulation Continue to monitor (2) Stroke (cerebrum): Code(s): I63.9 - Cerebral infarction, unspecified Status: Acute Assessment and Plan: CT Head showing Possible small old right cerebellar infarction. Patient is unaware of this. She is already on Plavix and Xarelto (3) Factor 5 Leiden mutation, heterozygous: Code(s): D68.51 - Activated protein C resistance Status: Acute Assessment and Plan: Currently on anticoagulation (4) Lumbar radiculopathy: Code(s): M54.16 - Radiculopathy, lumbar region Status: Acute Assessment and Plan: Stable (5) Factor V Leiden: Code(s): D68.51 - Activated protein C resistance Status: Acute Assessment and Plan: Stable Follow-up in outpatient setting (6) Anxiety: Code(s): F41.9 - Anxiety disorder, unspecified Status: Acute Assessment and Plan: Continue duloxetine. Follow-up in outpatient setting. Time Spent With Patient Time with patient: 25 - 35 minutes Subjective Date/time seen: 12/07/21 13:59 Interval history: Date of Service 12/07/2021: The patient reports having ?foggy brain?. 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 He states this has been going on for about 2 weeks as well as increased fatigue. She reports decreased appetite. States she had a cold about 2 weeks ago but states she was negative for COVID at that time. She has been vaccinated for COVID. Denies any fevers, chills, nausea abdominal pain, chest pain, shortness breath, cough, leg swelling, calf pain, or any other symptoms at this time. Review of Systems Review of Systems: All systems reviewed & are unremarkable except as noted in HPI and below Exam Narrative: General: 36-year-old woman laying down in bed. Appears comfortable. In no acute distress. Skin: No jaundice or cyanosis. Good skin turgor. Neck: Full range of motion. Supple. Respiratory: Lungs are clear to auscultation bilaterally. No bony chest wall tenderness. Cardiovascular: The heart has a regular rate and rhythm without murmur. Lower extremities: No lower extremity edema. Distal pulses are easily palpated. No calf tenderness to palpation. Gastrointestinal: The abdomen is soft, nontender and nondistended with active bowel sounds. Psychiatric: Lucid and oriented. Memory intact. Neurologic: Answering questions appropriately. No focal deficits. Speech is clear. No facial drooping. Objective Data Vital Signs Vital Signs: Vital Signs - 24 hr 12/06/21 17:03 12/06/21 23:14 12/07/21 00:18 Temperature 98.1 F Pulse Rate 99 61 61 Respiratory Rate 18 15 15 Blood Pressure 129/77 113/78 113/78 Pulse Oximetry 100 98 98 12/07/21 00:23 12/07/21 00:37 12/07/21 04:06 Temperature 96.9 F L 97.6 F Pulse Rate 61 55 L 62 Respiratory Rate 15 20 18 Blood Pressure 107/72 111/68 Pulse Oximetry 98 99 100 Intake/Output Intake/Output: Intake & Output 12/04/21 12/05/21 12/06/21 12/07/21 23:59 23:59 23:59 23:59 Intake Total 1000 310 Balance 1000 310 Meds/Results Medications: Active Medications Generic Name Dose Route Start Last Admin Trade Name Freq PRN Reason Stop Dose Admin Acetaminophen 650 mg 12/07/21 12:40 12/07/21 13:37 Acetaminophen 325 Mg Tablet PO 650 mg Q4H PRN Administration Cramping Clopidogrel Bisulfate 75 mg 12/07/21 09:00 12/07/21 08:55
[2021-12-07] MEDS: RIVAROXABAN 20 MG TABLET PO (16:58)
[2021-12-08 03:13] VITALS: BP 108/77; PULSE 74; RESP 14; TEMP 36.6; O2SAT 100
[2021-12-08 05:47] LABS: Hematocrit 39.9 % (37.0-47.0); Hemoglobin 13.6 g/dL (12.0-15.0); Mean Corpuscular HGB Conc 34.1 g/dl (32-36); Mean Corpuscular Hemoglobin 33.1 pg (26-34); Mean Corpuscular Volume 97.1 fl (80-100); Mean Platelet Volume 9.8 fl (7.4-10.4); Platelet Count Result 267 k/mm3 (150-375); Red Blood Count 4.11 M/mm3 (4.2-5.4); Red Cell Distribution Width 12.8 % (11.5-14.5)
[2021-12-08 05:56] LABS: Anion Gap 4 mmol/L (8-16); Blood Urea Nitrogen 12 mg/dL (7-17); Calcium 9.4 mg/dL (8.4-10.2); Carbon Dioxide 27 mmol/L (22-30); Chloride 106 mmol/L (98-107); Estimated CRCL calculation 87 ml/min; Estimated Glomerular Filt Rate > 60; Glucose 87 mg/dL (65-110); Potassium 4.1 mmol/L (3.4-5.0); Sodium 137 mmol/L (137-145)
[2021-12-08] MEDS: DULoxetine HCL 60 MG CAPSULE.DR PO (08:27)
[2021-12-08] MEDS: GABAPENTIN 100 MG CAPSULE PO (08:27)
[2021-12-08] MEDS: CLOPIDOGREL BISULFATE 75 MG TABLET PO (08:27)
--- NOTE | 2021-12-08 09:12 | PM.DS ---
DS: Admitting Diagnosis Discharge Date 12/08/21 Admitting Diagnosis Fatigue/foggy brain DS: Discharge Diagnosis Discharge Diagnosis (1) Altered mental status, unspecified: Code(s): R41.82 - Altered mental status, unspecified Status: Acute Assessment and Plan: Patient is a 36-year-old woman with a history of factor 5 Leiden who is on Xarelto, she also has a right femoral artery stent that was placed and is on Plavix, who presented to the emergency room with complaints of having ?foggy brain? and fatigue for the last 2 weeks. 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 States she had a cold about 2 weeks ago but states she was negative for COVID at that time. She has been vaccinated for COVID. Initial vitals showed stable blood pressure 129/77, heart rate 99, afebrile, normal oxygenation on room air. Initial labs showed slight elevation of white blood cell count 13866, with normal differential, normal coag panel, normal ABG, slight hyponatremia at 136, normal renal function, normal LFTs, normal ammonia level, normal TSH. Urinalysis without any signs of an acute infection. Urine drug screen positive for cannabinoids. Negative COVID PCR and influenza a and B. chest x-ray showed no acute cardiopulmonary findings. CT head showed no acute intracranial findings, possible small old right cerebellar infarct. Patient was admitted to the hospital for further evaluation an MRI with a consult to Neurology. During the patient's admission she continues to report some fatigue and intermittent symptoms of ?foggy brain?. She cannot describe to be in detail what specific instances she has had causing concern. MRI was completed showing unremarkable brain. No signs of any old stroke on MRI it must have been artifact. Patient's vitals are otherwise stable and she is feeling better today. She was seen by the neurologist did not recommend any further testing or medications at this time. I told the patient she is to keep a detailed log of how she is feeling to help a neurologist better decipher what issues may be going on. Otherwise she is stable to be discharged at this time to follow-up with Dr. Yisel Luis within 1 week for further evaluation after discharge. Return to ER warnings given. Patient understands and agrees with the plan all questions answered. (2) Stroke (cerebrum): Code(s): I63.9 - Cerebral infarction, unspecified Status: Acute (3) Factor 5 Leiden mutation, heterozygous: Code(s): D68.51 - Activated protein C resistance Status: Acute Assessment and Plan: Currently on anticoagulation (4) Lumbar radiculopathy: Code(s): M54.16 - Radiculopathy, lumbar region Status: Acute Assessment and Plan: Stable (5) Factor V Leiden: Code(s): D68.51 - Activated protein C resistance Status: Acute Assessment and Plan: Stable Follow-up in outpatient setting (6) Anxiety: Code(s): F41.9 - Anxiety disorder, unspecified Status: Acute Assessment and Plan: Continue duloxetine. Follow-up in outpatient setting. DS: Summary Hospital Course Hospital Course: See above Status at Discharge Cognitive/behavioral status at discharge: Stable, improved. Time Spent with Patient Time attestation: Total time spent providing and/or coordinating discharge services: 40 Time spent: Greater than 30 minutes Exam Narrative: General: 36-year-old woman laying down in bed taking a nap. Appears comfortable. In no acute distress. Skin: No jaundice or cyanosis. Good skin turgor. Neck: Full range of motion. Supple. Respiratory: Lungs are clear to auscultation bilaterally. No bony chest wall tenderness. Cardiovascular: The heart has a regular rate and rhythm without murmur. Lower extremities: No lower
== END 2021-12-08 11:53 | disposition home or self-care (01) ==
LOC: ANHED 21:41 → ANH2MED 23:51
PROVIDERS: Admitting Provider Internal Medicine; Emergency Provider Emergency Medicine; PCP Emergency Medicine; Visit Provider Physician Assistant
DX: I63.9 Cerebral infarction, unspecified (principal); R41.82 Altered mental status, unspecified; D68.51 Activated protein C resistance; F41.9 Anxiety disorder, unspecified; M54.16 Radiculopathy, lumbar region; Z79.01 Long term (current) use of anticoagulants; Z79.02 Long term (current) use of antithrombotics/antiplatelets; Z95.820 Peripheral vascular angioplasty status with implants and grafts; Z20.822 Contact with and (suspected) exposure to COVID-19; F17.210 Nicotine dependence, cigarettes, uncomplicated
CPT/HCPCS: 36415; 36600; 70450; 70551; 71046; 80048; 80053; 80307; 81001; 81025; 82140; 82550; 82805; 84443; 85025; 85027; 85610; 85730; 87804; 93005; 96360; 99285; A9270; C9803; G0378; J7030; U0003; U0005

== ENCOUNTER 2022-03-02 11:16 | Outpatient (CLI) | payer BC, SELFPAY ==
[2022-03-02 11:30] LABS: Basophils Percent Auto 0.4 % (0.2-1.2); Eosinophils Absolute Auto 0.2 K/mm3 (0-0.3); Eosinophils Percent Auto 2.3 % (0-4.4); Hematocrit 44.4 % (37.0-47.0); Hemoglobin 14.2 g/dL (12.0-15.0); Immature Granulocyte Absolute 0.02 K/mm3 (0.00-0.031); Immature Granulocyte Percent A 0.2 % (0-0.5); Lymphocytes Absolute Auto 2.46 K/mm3 (0.9-3.2); Lymphocytes Percent Auto 28.8 % (18.3-44.2); Mean Corpuscular Hemoglobin 32.8 pg (26-34); Mean Corpuscular Volume 102.5 fl (80-100); Mean Platelet Volume 9.4 fl (7.4-10.4); Monocytes Absolute Auto 0.6 K/mm3 (0.1-0.6); Monocytes Percent Auto 7.1 % (2.6-8.5); Neutrophils Absolute Auto 5.2 K/mm3 (1.3-6.7); Neutrophils Percent Auto 61.2 % (45.5-73.1); Platelet Count Result 325 k/mm3 (150-375); Red Blood Count 4.33 M/mm3 (4.2-5.4); Red Cell Distribution Width 12.6 % (11.5-14.5); White Blood Count 8.6 K/mm3 (4.5-10.0)
[2022-03-02 11:33] LABS: Blood Urea Nitrogen 13 mg/dL (8-26); Carbon Dioxide 25 mmol/L (22-30); Chloride 104 mmol/L (98-109); Estimated Glomerular Filt Rate > 60; Glucose 114 mg/dL (70-105); Ionized Calcium (POC) 1.23 mmol/L (1.11-1.31); Potassium 3.7 mmol/L (3.5-4.9); Sodium 140 mmol/L (138-146)
[2022-03-02 14:43] LABS: Alanine Aminotransferase 12 U/L (4-35); Albumin Level 4.6 g/dL (3.5-5.1); Alkaline Phosphatase 58 U/L (38-126); Anion Gap 8 mmol/L (8-16); Aspartate Amino Transferase 22 U/L (14-36); Bilirubin,Total 0.4 mg/dL (0.2-1.3); Blood Urea Nitrogen 13 mg/dL (7-17); Calcium 9.3 mg/dL (8.4-10.2); Carbon Dioxide 23 mmol/L (22-30); Chloride 107 mmol/L (98-107); Estimated Glomerular Filt Rate > 60; Glucose 117 mg/dL (65-110); Potassium 3.7 mmol/L (3.4-5.0); Sodium 138 mmol/L (137-145)
== END 2022-03-02 11:17 | disposition home or self-care (01) ==
LOC: ANHLAB 11:19
PROVIDERS: PCP Emergency Medicine; Visit Provider Internal Medicine Hematology & Oncology
DX: D68.69 Other thrombophilia (principal)
CPT/HCPCS: 36415; 80047; 80053; 85025

== ENCOUNTER 2023-03-23 10:38 | Outpatient (CLI) | payer BC, SELFPAY ==
[2023-03-23 10:54] LABS: Basophils Absolute Auto 0.1 K/mm3 (0.0-0.1); Basophils Percent Auto 0.6 % (0.2-1.2); Eosinophils Absolute Auto 0.3 K/mm3 (0-0.3); Eosinophils Percent Auto 2.8 % (0-4.4); Hematocrit 41.9 % (37.0-47.0); Hemoglobin 14.4 g/dL (12.0-15.0); Immature Granulocyte Absolute 0.03 K/mm3 (0.00-0.031); Immature Granulocyte Percent A 0.3 % (0-0.5); Lymphocytes Percent Auto 30.5 % (18.3-44.2); Mean Corpuscular HGB Conc 34.4 g/dl (32-36); Mean Corpuscular Volume 96.1 fl (80-100); Mean Platelet Volume 9.5 fl (7.4-10.4); Monocytes Absolute Auto 0.9 K/mm3 (0.1-0.6); Monocytes Percent Auto 7.8 % (2.6-8.5); Neutrophils Absolute Auto 6.3 K/mm3 (1.3-6.7); Platelet Count Result 276 k/mm3 (150-375); Red Blood Count 4.36 M/mm3 (4.2-5.4); Red Cell Distribution Width 12.4 % (11.5-14.5); White Blood Count 10.8 K/mm3 (4.5-10.0)
[2023-03-23 12:27] LABS: Alanine Aminotransferase 16 U/L (6-35); Albumin Level 4.5 g/dL (3.5-5.1); Alkaline Phosphatase 52 U/L (38-126); Anion Gap 6 mmol/L (8-16); Aspartate Amino Transferase 20 U/L (14-36); Bilirubin,Total 0.4 mg/dL (0.2-1.3); Blood Urea Nitrogen 12 mg/dL (7-17); Calcium 8.9 mg/dL (8.4-10.2); Carbon Dioxide 26 mmol/L (22-30); Chloride 106 mmol/L (98-107); Estimated Glomerular Filt Rate > 60; Glucose 115 mg/dL (65-110); Potassium 3.9 mmol/L (3.4-5.0); Sodium 138 mmol/L (137-145)
== END 2023-03-23 10:39 | disposition home or self-care (01) ==
LOC: ANHLAB 10:41
PROVIDERS: PCP Emergency Medicine; Visit Provider Internal Medicine Hematology & Oncology
DX: D68.69 Other thrombophilia (principal)
CPT/HCPCS: 36415; 80053; 85025